=== PATIENT | male | born 1955 | race African-American/Black ===

== ENCOUNTER → 2017-01-13 | Outpatient (CLI) | payer OTHER ==
[~2017-01-13] VITALS: Ht 172.7 cm; Wt 80.3 kg
[~2017-01-13] MED LIST: AMLO10TA2 PO; ATEN100T PO; CONTRAST GIVEN MC PRN; FLUT16SP NS; HEPARIN for ARTERIAL LINE 2,000 ML ONE; IOHEXOL 300 MG/ML 100ML VIAL. IART ONE; IOHEXOL 300 MG/ML 100ML VIAL. ONE; IOHEXOL 300 MG/ML 50 ML VIAL. ONE; LIDOCAINE 1% / SOD BICARB 8.4% 20 ML VIAL. IJ ONE; MULT-690 PO; RANI150T2 PO; omegaXL PO
[2017-01-13 09:02] LABS: BASO % 0 % (0-3); EOS % 2 % (0-3); HEMATOCRIT 47.8 % (39.0-53.0); HEMOGLOBIN 15.6 g/dL (13.0-17.5); LYMPH # 1.4 x10^3/uL (1.0-4.8); LYMPH % 17 % (24-48); MEAN CORPUSCULAR HEMOGLOBIN 29 pg (25-35); MEAN CORPUSCULAR HGB CONC 33 g/dL (31-37); MEAN CORPUSCULAR VOLUME 90 fL (79-100); MONO % 8 % (0-9); NEUT % 73 % (31-73); PLATELET COUNT 307 x10^3/uL (140-400); RED BLOOD COUNT 5.29 x10^6/uL (4.30-5.70); RED CELL DISTRIBUTION WIDTH 13.9 % (11.5-14.5); WHITE BLOOD COUNT 8.5 x10^3/uL (4.0-11.0)
[2017-01-13 09:17] LABS: PROTHROMBIN TIME PATIENT 12.8 SEC (11.7-14.0)
[2017-01-13 09:54] VITALS: BP 140/86
--- NOTE | 2017-01-13 09:56 | EKG ---
[facility] [address] [place] [address] Test Date: 2017-01-13 Test Time: 09:55:41 Pat Name: DARLINE MARQUEZ Department: Room: Gender: Director Center: [place] : 1955 Requested By: PITER SANTOS Order Number: [id number] Reading MD: Adrian Lynn Measurements Intervals [place] Rate: 60 P: 51 MN: 148 QRS: -19 QRSD: 104 T: 47 QT: 390 QTc: 394 Interpretive Statements SINUS RHYTHM Electronically Signed On 01-14-2017 15:50:58 CDT by Adrian Lynn
[2017-01-13 10:30] LABS: CALCIUM 9.3 mg/dL (8.5-10.1); CREATININE 1.1 mg/dL (0.7-1.3); GFR 82.3; POTASSIUM 4.1 mmol/L (3.5-5.1)
[2017-01-13 12:42] VITALS: BP_SYST 80
--- NOTE | 2017-01-13 13:10 | PDOC1 ---
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 He has maternal h/o HHT. He has recurrent epistaxis, occasional GI bleeding, + large pulmonary AVM demonstrated at CT. With his large AVM (feeding artery 7mm in diameter), he is at significant risk for bleeding, TIAs, CVA, intracranial abscess. Therefore, trans microcatheter coil embolization of the AVM is considered necessary. Past Medical History Past Medical History See Nursing Pre procedure PMH---Includes SOA/weakness, epistaxis, and GI bleeds. Also has maternal h/o HHT. Past Surgical History Past Surgical History Se Nursing Pre Procedure PMH Current Medications Current Medications Current Medications Iohexol (Omnipaque 300 Mg/ml) 50 ml STK-MED ONCE .ROUTE ; Start 01/13/17 at 10: 10; Stop 01/13/17 at 10:11; Status DC Iohexol (Omnipaque 300 Mg/ml) 100 ml STK-MED ONCE .ROUTE ; Start 01/13/17 at 10: 10; Stop 01/13/17 at 10:11; Status DC Lidocaine/Sodium Bicarbonate 20 ml 20 ml STK-MED ONCE IJ ; Start 01/13/17 at 10: 10; Stop 01/13/17 at 10:11; Status DC Heparin Sodium/ Sodium Chloride 2,000 ml @ As Directed STK-MED ONCE .ROUTE ; Start 01/13/17 at 10:11; Stop 01/13/17 at 10:12; Status DC Heparin Sodium/ Sodium Chloride 500 ml @ As Directed STK-MED ONCE .ROUTE ; Start 01/13/17 at 10:16; Stop 01/13/17 at 10:17; Status DC Iohexol (Omnipaque 300 Mg/ml) 100 ml STK-MED ONCE .ROUTE ; Start 01/13/17 at 11: 30; Stop 01/13/17 at 11:31; Status DC Heparin Sodium/ Sodium Chloride 1,000 unit 1X ONCE IART Last administered on t 12:41; Start 01/13/17 at 12:15; Stop 01/13/17 at 12:16; Status DC Lidocaine/Sodium Bicarbonate (Buffered Lidocaine 1%) 4 ml 1X ONCE IJ Last administered on 01/13/17 12:42; Start 01/13/17 at 12:15; Stop 01/13/17 at 12:16 ; Status DC Iohexol (Omnipaque 300 Mg/ml) 100 ml 1X ONCE IART Last administered on 12:42; Start 01/13/17 at 12:15; Stop 01/13/17 at 12:16; Status DC Heparin Sodium/ Sodium Chloride 1,000 unit 1X ONCE IV Last administered on 12:41; Start 01/13/17 at 12:15; Stop 01/13/17 at 12:16; Status DC Heparin Sodium/ Sodium Chloride 1,000 unit 1X ONCE IV Last administered on 12:42; Start 01/13/17 at 12:15; Stop 01/13/17 at 12:16; Status DC Info (Do NOT chart on this entry -- for MONITORING) 1 each PRN DAILY PRN MC SEE COMMENTS; Start 01/13/17 at 12:15; Stop 01/15/17 at 12:14 Active Scripts Active Reported Fluticasone Propionate Nasal [place] (Fluticasone Propionate) 16 Gm [place].susp 2 [place] NS DAILY Atenolol 100 Mg Tablet 100 Mg PO DAILY Ranitidine Hcl 150 Mg Tablet 150 Mg PO DAILY Amlodipine Besylate 10 Mg Tablet 10 Mg PO DAILY Centrum Silver Men Tablet (Multivit-Min/FA/Lycopen/Lutein) 1 Each Tablet 1 Each PO DAILY [omegaXL] 2 Tab PO DAILY Allergies Allergies: Coded Allergies: No Known Drug Allergies (Unverified , 01/13/17) Physical Exam Vital Signs Vital Signs Date Time Temp Pulse Resp B/P Pulse Ox O2 Delivery O2 Flow Rate FiO2 01/13/17 12:42 49 14 100 Nasal Cannula 2.0 01/13/17 09:54 97.9 140/86 97.9 Lungs: Clear to auscultation Heart: Regular rate Psych/Mental Status: Mental status NL Diagnostic Data/Imaging Images PMC CT chest from 01/03/17 personally reviewed. 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 Problems: Plan Plan Selective/superselective left PA gram Trans microcatheter embolization of large left lower lobe segmental AVM. PITER SANTOS MD Jan 13, 2017 13:10
--- NOTE | 2017-01-13 13:15 | PDOC ---
Exam Mid Level Project Manager Mid Level Project Manager Alan [employer]uring Technician [employer]stream [employer]omanufacturing Technician Esteban Wallace Pre-Procedure Diagnosis Pre-Procedure Diagnosis 61 YO male with likely HHT-----very large left lower lobe segmental AVM, at risk for major bleeding, hypoxia, and for neurological sequelae associated with right to left shunt. Post-Procedure Diagnosis Post-Procedure Diagnosis Same Procedure Performed Procedure Performed Selective/superselective left PA gram Trans microcatheter coil embolization of large pulmonary AVM. Type of Anesthesia Type of Anesthesia MAC by anesthesia Estimated Blood Loss EBL: Minimal Condition of Patient Condition of Patient Stable. No apparent complication. Disposition Disposition From IR to PACU. Home from PACU post recovery, if no groin bleeding or other problems. F/u with Dr Sheth for workup of Luteeaniel and family for HHT. To f/u this large embolized pulmonary AVM, I would recommend f/u CT at 3 months and 6-12 months, folowed by every 2-3 years. Full report to follow. PITER SANTOS MD Jan 13, 2017 13:15
[2017-01-13 15:33] VITALS: BP 132/75
--- NOTE | 2017-01-14 06:53 | RAD ---
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 His mother has HHT. He has had frequent nosebleeds, occasional GI bleed, and has a very large left pulmonary AVM by CT. He is considered at high risk for significant bleeding, as well as for neurologic sequelae of right to left shunt, including TIAs, CVA, and brain abscess. Selective embolization of the AVM has been requested by pulmonary. Fluoroscopy time: 42.6 minutes Kerma-area Product: 338 Gycm2 Contrast material: 145 cc Omnipaque 300 Anesthesia: Mac anesthesia was provided by the department of anesthesiology. Consent: The procedure was explained in its entirety to the patient and/or the patient's designated healthcare sales representative by a member of the treatment team. This included a discussion of risks and benefits and commonly accepted alternatives to the procedure, as well as expected consequences of no treatment at all. Discussion of risks included, but was not limited to, those that are most frequent and those that are rare, but possibly severe or life-threatening, as well as the possibility of unforeseen complications. Sterility: All elements of maximal sterile barrier technique were utilized, including cap, mask, sterile gown, sterile gloves, large sterile sheet, appropriate hand hygiene, and 2% chlorhexidine for cutaneous antisepsis. Procedure: Informed consent was obtained from the patient. He was placed supine on the angiography table. Preliminary ultrasound examination of right groin revealed wide patency of right common femoral vein, which was documented with a single hard copy ultrasound image. Right groin was then prepped and draped in the usual sterile fashion, utilizing all elements of maximal sterile barrier technique, as described above. Mac anesthesia was provided by anesthesiology. Using aseptic technique, local anesthesia, direct ultrasound guidance, and the micropuncture system, an 8 Trin[place] right common femoral vein sheath was successfully introduced. Left pulmonary arteriogram: Using aseptic technique and fluoroscopic guidance, a 7 Trinid[place] Eusebio catheter was successfully advanced superiorly from right common femoral vein, across tricuspid and pulmonic valves, into proximal left descending pulmonary artery. Omnipaque 300 was injected and digital angiographic images were obtained over left chest in the SHEELA projection. Those images confirmed the very large left lower lobe AV malformation demonstrated on the recent [facility] CT chest. The AVM appears to be simple, perfused by only a single, dilated segmental pulmonary artery and with a single enlarged draining vein. No other left lung AVMs were demonstrated. Coil embolization of left pulmonary AVM: The Eusebio catheter, previously positioned within proximal left descending pulmonary artery was exchanged over a TapSense guidewire for a 6 Trinidadian 65 cm long destination sheath, which was inserted through the 8 Trinidadian right groin sheath and was advanced into left main pulmonary artery. A 5 Trin[place] 100 cm long Berenstein catheter was then inserted through the destination sheath and was successfully advanced superselectively into distal aspect of the dilated left lower lobe segmental pulmonary artery perfusing the AVM. A 2.5 Trin[place] MenoGeniXtern microcatheter was then coaxially inserted through the Berenstein catheter and was positioned with its 45 degree angle tip just proximal to the dilated pulmonary artery-AVM junction. Subsequently, utilizing strict magnification fluoroscopic guidance, coil embolization of distal segment of the feeding segmental pulmonary artery was successfully performed utilizing a total of 4 Penumbra detachable microcoils. The initial coil deployed was a POD8, followed sequentially by a 30 cm J-soft packing coil, and an 8 mm x 35 cm soft Marialuisa coil. The microcatheter was removed. Omnipaque 300 was injected through the Berenstein catheter, and DSA images were obtained, which revealed incomplete occlusion of the large segmental pulmonary artery. Therefore, the microcatheter was reinserted through the Berenstein catheter and a final 60 cm J-soft packing coil was carefully deployed. The microcatheter was again removed. Omnipaque 300 was again injected through the Berenstein catheter and DSA images were obtained, which revealed complete occlusion of the feeding segmental artery. The Berenstein catheter was then withdrawn into left main pulmonary artery. Omnipaque 300 was again injected and completion DSA images were obtained. Those images again revealed complete occlusion of the lower lobe segmental artery, with absent opacification of the AVM and draining vein. No additional feeding artery was demonstrated. No further intervention was considered indicated. Patient tolerated the procedure well without apparent complication. Hemostasis was achieved at the right groin puncture site utilizing manual pressure. The patient was transported from the angiography suite to the postanesthesia care unit in stable condition. Impression: 1. Successful, uneventful selective/superselective left pulmonary arteriogram, confirming a solitary, very large, but simple left lower lobe pulmonary AVM, with a single, dilated segmental feeding pulmonary artery, and a single, dilated draining pulmonary vein. 2. Successful, uneventful trans-microcatheter coil embolization of the large left lower lobe pulmonary AVM, as described.
== END | disposition home or self-care (01) ==
LOC: INTRAD 08:24
PROVIDERS: ATTEND Internal Medicine Pulmonary Disease
DX: Q25.72 Congenital pulmonary arteriovenous malformation (principal); G45.9 Transient cerebral ischemic attack, unspecified; G06.0 Intracranial abscess and granuloma; I10 Essential (primary) hypertension
CPT/HCPCS: 36015; 36415; 37242; 75741; 75774; 76937; 80048; 85027; 85610; 93005; C1713; C1769; C1887; C1892; C1894; Q9967

== ENCOUNTER 2021-01-12 20:50 | Emergency (ER) | payer OTHER, MEDICARE ==
[~2021-01-12] VITALS: Ht 172.7 cm; Wt 88.0 kg
[~2021-01-12 20:50] MED LIST changes: +AMLO-187 PO; -AMLO10TA2 PO; -CONTRAST GIVEN MC PRN; -HEPARIN for ARTERIAL LINE 2,000 ML ONE; -IOHEXOL 300 MG/ML 100ML VIAL. IART ONE; -IOHEXOL 300 MG/ML 100ML VIAL. ONE; -IOHEXOL 300 MG/ML 50 ML VIAL. ONE; -LIDOCAINE 1% / SOD BICARB 8.4% 20 ML VIAL. IJ ONE
--- NOTE | 2021-01-12 21:48 | PHYS DOC ---
Past Medical History Past Medical History: Hypertension, Other Additional Past Medical Histor: LUNG SURG. SINUS INFECTION Past Surgical History: Other Additional Past Surgical Histo: LUNG SURG 3 YEARS AGO Smoking Status: Former Smoker Alcohol Use: Occasionally Additional Information: DAILY 2 DRINKS General Adult EDM: Chief Complaint: HYPERTENSION HPI: HPI: Patient is a 65 year old male who presents to the emergency department due to hypertension and headache. Patient recorded a blood pressure this morning of 168/99 which later went down to 140s over 80. Later on patient noticed that he had a headache and that his right shoulder pain but no chest pain or shortness of breath. Patient took his blood pressure again which showed blood pressure of 215/99 and he called the emergency department who advised him to come in. Patient has intermittent nausea but no blurred vision or dizziness. Review of Systems: Review of Systems: Review of systems: Constitutional symptoms- No fever, no chills. Eyes- No Discharge, No Visual Loss Respiratory symptoms- No shortness of breath, No wheezing, No Dyspnea on Exertion, positive cough Cardiovascular Systems; No chest pain, No Palpitations, No syncope Gastrointestinal symptoms: NO abdominal pain, no nausea, no vomiting or diarrhea. Genitourinary symptoms: No dysuria. Musculoskeletal symptoms: No back pain, right shoulder pain. NEUROLOGICAL Symptoms: Positive headache, no generalized weakness; No focal Weakness Heart Score: C/O Chest Pain: N/A Risk Factors: Risk Factors: DM, Current or recent (<one month) smoker, HTN, HLP, family history of CAD, obesity. Risk Scores: Score 0 - 3: 2.5% MACE over next 6 weeks - Discharge Home Score 4 - 6: 20.3% MACE over next 6 weeks - Admit for Clinical Observation Score 7 - 10: 72.7% MACE over next 6 weeks - Early Invasive Strategies Allergies: Allergies: Allergies Coded Allergies Type Severity Reaction Last Updated Verified No Known Drug Allergies 01/13/17 No Physical Exam: PE: General: alert, no acute distress. Skin: warm, dry and intact. Head:: Normocephalic, atraumatic. Neck: Trachea midline. Eyes: EOMI, injected conjunctiva, No drainage CARDIOVASCULAR: Regular rate and rhythm, radial pulses intact RESPIRATORY: No respiratory distress, CTAB Back: Full range of motion. MUSCULOSKELETAL: Full range of motion of bilateral upper and lower extremities. GASTROINTESTINAL: Abdomen soft without rebound or guarding. NEUROLOGICAL: Alert and noted to person, place and time. No neurological deficits observed Psychiatric: Cooperative. Normal judgment Current Patient Data: Vital Signs: Vital Signs Date Time Temp Pulse Resp B/P (MAP) Pulse Ox O2 Delivery O2 Flow Rate FiO2 01/12/21 21:02 98.4 110 18 182/75 (110) 97 Room Air 98.4 EKG: EKG: [] Radiology/Procedures: Radiology/Procedures: [] Course & Med Decision Making: Course & Med Decision Making Pertinent Labs and Imaging studies reviewed. (See chart for details) [] Patient was evaluated for chief complaint. Work-up consisted of radiologic imaging laboratory analysis and EKG. Results reviewed and discussed with patient and . Radiologist noted mildly enlarged heart. Troponin and EKG within normal limits. Patient's blood pressure in the 160s systolic. Patient advised to continue taking current medications. Advised to take blood pressure readings daily. Patient advised to follow-up with primary care physician. Sukumar Disclaimer: Sukumar Disclaimer: This electronic medical record was generated, in whole or in part, using a voice recognition dictation system. Departure Departure Impression: Primary Impression: Hypertension Additional Impression: Hypokalemia Disposition: HOME / SELF CARE / HOMELESS Condition: STABLE Referrals: DINO VILLA (PCP) Patient Instructions: Hypertension, Hypokalemia Scripts Potassium Chloride (POTASSIUM CHLORIDE ) 20 Meq Tablet.er 20 MEQ PO DAILY for SUPPLEMENT, #14 TAB.SR Prov: PACO CHEN DO 01/13/21 PACO CHEN DO Jan 12, 2021 21:48
[2021-01-12 22:19] LABS: BASO % 0 % (0-3); EOS # 0.1 x10^3/uL (0.0-0.7); EOS % 1 % (0-3); HEMATOCRIT 44.8 % (39.0-53.0); HEMOGLOBIN 14.9 g/dL (13.0-17.5); LYMPH # 1.7 x10^3/uL (1.0-4.8); LYMPH % 16 % (24-48); MEAN CORPUSCULAR HEMOGLOBIN 29 pg (25-35); MEAN CORPUSCULAR HGB CONC 33 g/dL (31-37); MEAN CORPUSCULAR VOLUME 88 fL (79-100); MONO % 10 % (0-9); NEUT # 7.7 x10^3/uL (1.8-7.7); NEUT % 74 % (31-73); PLATELET COUNT 308 x10^3/uL (140-400); RED BLOOD COUNT 5.08 x10^6/uL (4.30-5.70); RED CELL DISTRIBUTION WIDTH 14.3 % (11.5-14.5); WHITE BLOOD COUNT 10.5 x10^3/uL (4.0-11.0)
[2021-01-12 22:38] LABS: CALCIUM 9.5 mg/dL (8.5-10.1); CREATININE 1.1 mg/dL (0.7-1.3); GFR 81.3
[2021-01-12 22:44] LABS: ALBUMIN 4.6 g/dL (3.4-5.0); ALBUMIN/GLOBULIN RATIO 1.2 (1.0-1.7); TOTAL BILIRUBIN 0.6 mg/dL (0.2-1.0); TOTAL PROTEIN 8.5 g/dL (6.4-8.2)
--- NOTE | 2021-01-12 22:59 | RAD ---
Exam: Chest one view INDICATION: Hypertension TECHNIQUE: Frontal view of the chest Comparisons: None FINDINGS: Heart is mildly enlarged. Pulmonary vessels are within normal limits. Embolization coils in the left lung base are noted. The lung and pleural spaces are clear. IMPRESSION: No acute pulmonary process. Electronically signed by: Caleb Gilbert MD (01/12/2021 10:57 PM) JUAN PABLO
[2021-01-12] MEDS ORDERED: POTASSIUM CHLORIDE 20 MEQ TABLET.ER. PO ONE (23:30)
[2021-01-13] MEDS ORDERED: POTA20TA4 PO (00:03)
[2021-01-13 00:31] VITALS: BP 155/94
--- NOTE | 2021-01-13 11:39 | EKG ---
[facility] [address] [place] [address] Test Date: 2021-01-12 Test Time: 22:35:08 Pat Name: DARLINE MARQUEZ Department: Room: Gender: M Psychologist Developmental: : 1955 Requested By: PACO CHEN Order Number: [id number] Reading MD: Measurements Intervals [place] Rate: 81 P: 50 NM: 146 QRS: -36 QRSD: 104 T: 32 QT: 364 QTc: 423 Interpretive Statements SINUS RHYTHM LEFT ATRIAL ABNORMALITY ABNORMAL LEFT AXIS DEVIATION R-S TRANSITION ZONE IN V LEADS DISPLACED TO THE LEFT LEFT ANTERIOR FASCICULAR BLOCK INCOMPLETE RIGHT BUNDLE BRANCH BLOCK ABNORMAL ECG RI6.02 No previous ECG available for comparison
== END 2021-01-13 00:33 | disposition home or self-care (01) ==
LOC: ER 20:50
DX: I10 Essential (primary) hypertension (principal); E87.6 Hypokalemia; R51.9 Headache, unspecified; M25.511 Pain in right shoulder; R11.0 Nausea; Z87.891 Personal history of nicotine dependence; Z98.890 Other specified postprocedural states
CPT/HCPCS: 36415; 71045; 80053; 84484; 85025; 93005; 99285